=== PATIENT | female | born 1990 | race Two or more races ===

== ENCOUNTER 2019-06-22 20:12 | Emergency (ER) | payer SELFPAY ==
[~2019-06-22] VITALS: Ht 152.4 cm; Wt 63.6 kg
[2019-06-22 20:37] LABS: BILIRUBIN,URINE NEGATIVE (NEG); CLARITY,URINE CLEAR; COLOR,URINE YELLOW; NITRITE,URINE NEGATIVE (NEG); PH,URINE 5.5 (<5.0-8.0); PROTEIN,URINE NEGATIVE (NEG-TRACE); UROBILINOGEN,URINE 0.2 mg/dL (0.2 mg/dL)
[2019-06-22 20:42] VITALS: BP 143/75
[2019-06-22 20:44] LABS: SQUAMOUS EPITHELIAL CELL,UR MOD /LPF
[2019-06-22 20:45] LABS: BACTERIA,URINE 0 /HPF (0-FEW)
--- NOTE | 2019-06-22 21:11 | PHYS DOC ---
Past Medical History Past Medical History: No Pertinent History Past Surgical History: No Surgical History Smoking Status: Never Smoker Alcohol Use: None Adult General Chief Complaint Chief Complaint: ABDOMINAL PAIN IN HPI HPI Patient is a 29 year old female who presents with last menstrual period May 07, 2019. Patient states today she began having vaginal spotting and having intermittent menstrual pain. She states that she does not have any pain with urination. She currently rates her pain a 2 out of 10. She states the vaginal spotting has stopped. She does have concern for sexually transmitted disease. Patient has agreed to be treated today for sexually transmitted diseases. Review of Systems Review of Systems GI: Low mid abdominal pain, denies nausea, vomiting, bloody stools or diarrhea [] : Denies dysuria or hematuria. Vaginal spotting. [] All other systems were reviewed and found to be within normal limits, except as documented in this note. Current Medications Current Medications Current Medications Medications (Trade) Dose Ordered Sig/King Start Time Stop Time Status Last Admin Dose Admin Azithromycin (Zithromax) 500 mg 1X ONCE 06/22/19 21:30 06/22/19 21:31 DC 06/22/19 21:37 500 MG Ceftriaxone Sodium (Rocephin Im) 250 mg 1X ONCE 06/22/19 21:30 06/22/19 21:31 DC 06/22/19 21:37 250 MG Sodium Chloride 1,000 ml @ 1,000 mls/hr Q1H 06/22/19 21:30 06/22/19 22:29 06/22/19 21:37 1,000 MLS/HR Allergies Allergies Allergies Coded Allergies Type Severity Reaction Last Updated Verified No Known Drug Allergies 06/22/19 No Physical Exam Physical Exam Constitutional: Well developed, well nourished, no acute distress, non-toxic appearance. [] HENT: Normocephalic, atraumatic, bilateral external ears normal, oropharynx moist, no oral exudates, nose normal. [] Eyes: PERRLA, EOMI, conjunctiva normal, no discharge. [] Neck: Normal range of motion, no tenderness, supple, no stridor. [] Cardiovascular:Heart rate regular rhythm, no murmur [] Lungs & Thorax: Bilateral breath sounds clear to auscultation [] Abdomen: Bowel sounds normal, soft, low mid tenderness, no masses, no pulsatile masses. [] Skin: Warm, dry, no erythema, no rash. [] Back: No tenderness, no CVA tenderness. [] Extremities: No tenderness, no cyanosis, no clubbing, ROM intact, no edema. [] Neurologic: Alert and oriented X 3, normal motor function, normal sensory function, no focal deficits noted. [] Psychologic: Affect normal, judgement normal, mood normal. [] Current Patient Data Vital Signs Vital Signs Date Time Temp Pulse Resp B/P (MAP) Pulse Ox O2 Delivery O2 Flow Rate FiO2 06/22/19 20:42 99.1 83 20 143/75 (97) 99 Room Air 99.1 Lab Values Laboratory Tests Test 06/22/19 20:20 06/22/19 20:24 06/22/19 21:28 Urine Collection Type Unknown Urine Color Yellow Urine Clarity Clear Urine pH 5.5 (<5.0-8.0) Urine Specific [place] 1.010 (1.000-1.030) Urine Protein Negative mg/dL (NEG-TRACE) Urine Glucose (UA) Negative mg/dL (NEG) Urine Ketones (Stick) Negative mg/dL (NEG) Urine Blood Small (NEG) Urine Nitrite Negative (NEG) Urine Bilirubin Negative (NEG) Urine Urobilinogen Dipstick 0.2 mg/dL (0.2 mg/dL) Urine Leukocyte Esterase Trace (NEG) Urine RBC 3-5 /HPF (0-2) Urine WBC 1-4 /HPF (0-4) Urine Squamous Epithelial Cells Mod /LPF Urine Bacteria 0 /HPF (0-FEW) Urine Mucus Slight /LPF POC Urine HCG, Qualitative Hcg positive (Negative) White Blood Count 10.9 x10^3/uL (4.0-11.0) Red Blood Count 4.46 x10^6/uL (3.50-5.40) Hemoglobin 13.3 g/dL (12.0-15.5) Hematocrit 38.7 % (36.0-47.0) Mean Corpuscular Volume 87 fL (79-100) Mean Corpuscular Hemoglobin 30 pg (25-35) Mean Corpuscular Hemoglobin Concent 34 g/dL (31-37) Red Cell Distribution Width 13.3 % (11.5-14.5) Platelet Count 300 x10^3/uL (140-400) Neutrophils (%) (Auto) 65 % (31-73) Lymphocytes (%) (Auto) 28 % (24-48) Monocytes (%) (Auto) 6 % (0-9) Eosinophils (%) (Auto) 1 % (0-3) Basophils (%) (Auto) 1 % (0-3) Neutrophils # (Auto) 7.1 x10^3/uL (1.8-7.7) Lymphocytes # (Auto) 3.1 x10^3/uL (1.0-4.8) Monocytes # (Auto) 0.6 x10^3/uL (0.0-1.1) Eosinophils # (Auto) 0.1 x10^3/uL (0.0-0.7) Basophils # (Auto) 0.1 x10^3/uL (0.0-0.2) Prothrombin Time 12.6 SEC (11.7-14.0) Prothrombin Time INR 1.0 (0.8-1.1) Sodium Level 139 mmol/L (136-145) Potassium Level 3.2 mmol/L (3.5-5.1) L Chloride Level 103 mmol/L (98-107) Carbon Dioxide Level 24 mmol/L (21-32) Anion Gap 12 (6-14) Blood Urea Nitrogen 9 mg/dL (7-20) Creatinine 0.6 mg/dL (0.6-1.0) Estimated GFR (Cockcroft-Gault) 119.0 BUN/Creatinine Ratio 15 (6-20) Glucose Level 110 mg/dL (70-99) H Calcium Level 9.4 mg/dL (8.5-10.1) Total Bilirubin 0.2 mg/dL (0.2-1.0) Aspartate Amino Transferase (AST) 15 U/L (15-37) Alanine Aminotransferase (ALT) 23 U/L (14-59) Alkaline Phosphatase 71 U/L (46-116) Total Protein 6.8 g/dL (6.4-8.2) Albumin 3.7 g/dL (3.4-5.0) Albumin/Globulin Ratio 1.2 (1.0-1.7) Laboratory Tests 06/22/19 21:28 Laboratory Tests 06/22/19 21:28 Microbiology 06/22/19 Wet Prep - Final, Complete EKG EKG [] Radiology/Procedures Radiology/Procedures [] Impressions: [facility] [address] [place] [address] IMAGING REPORT Signed PATIENT: LILY BO: [id number] : 1990 LOCATION: ER AGE: 29 SEX: F EXAM STATUS: REG ER ORD. PHYSICIAN: OMARI PAGAN APRN REASON: VAG BLEEDING IN PROCEDURE: OB <14 WKS W/TV Exam: Ultrasound OB less than 14 weeks Indication: Vaginal bleeding and Technique: Real-time grayscale and color Doppler images of the pelvis were obtained by the department pipe fitter marine. Comparisons: None FINDINGS: Uterus measures 8.8 x 6.5 x 5.0 cm. Within the endometrium there is a gestational sac with yolk sac. No pole is identified. Right ovary measures 2.7 x 1.9 x 1.5 cm. Left ovary measures 3.8 x 4.1 x 2.6 cm. Small amount of fluid fluid noted within the pelvis. IMPRESSION: Gestational sac with internal yolk sac identified in the endometrium. No pole is identified. Differential considerations include an early IUP or failed IUP. Recommend correlation with serial beta hCG measurements and short-term follow-up ultrasound. Electronically signed by: Ama Oates MD (06/22/2019 9:42 PM) [id number] DICTATED and SIGNED BY: AMA OATES MD DATE: 06/22/192141 Course & Med Decision Making Course & Med Decision Making Pertinent Labs and Imaging studies reviewed. (See chart for details) Alert and oriented. Speaks in full clear sentences. Skin pink warm and dry. Low mid abdomen is slightly tender to palpation but she feels more of a pressure. Ambulatory with a steady gait. No extremity swelling. Patient rating her pain a 2 out of 10. She denies fever, back pain, abdominal pain, nausea, vomiting or diarrhea, numbness tingling, headache, dizziness, visual changes. Vital signs are within normal limits. Patient is Welsh-speaking customer accounts advisor phone is used. Patient is given Rocephin and Azithromycin. Patient is not currently having any vaginal bleedings. Pelvic Exam: Produce Sorter present Abdomen: Nontender External Genitalia: Normal Skin Speculum: Normal vaginal mucosa, White cervical discharge Bimanual: No adnexal masses or tenderness, No CMT [] Dragon Disclaimer Dragon Disclaimer This electronic medical record was generated, in whole or in part, using a voice recognition dictation system. Departure Departure Impression: Primary Impression: Abdominal pain affecting Additional Impressions: Vaginal spotting Bacterial vaginosis in Disposition: HOME, SELF-CARE Condition: STABLE Referrals: NO PCP (PCP) OSEI SHAH Jr, MD Patient Instructions: ABCs of , Abdominal Pain During , [id number], Sexually Transmitted Diseases (STD) In Additional Instructions: Follow up with OB as soon as possible. Drink plenty of fluids. Begin taking vitamins with food daily. If you begin bleeding and going through more than one pad a hour return to ED. Scripts Metronidazole (METRONIDAZOLE) 500 Mg Tablet 1 TAB PO BID for 7 Days, #14 TAB 0 Refills Prov: OMARI PAGAN APRN 06/22/19 Problem Qualifiers OMARI PAGAN APRN Jun 22, 2019 21:11
[2019-06-22] MEDS ORDERED: IV NORMAL SALINE 1000ML BAG 1,000 ML IV SCH (21:30)
[2019-06-22] MEDS ORDERED: AZITHROMYCIN 250 MG TABLET. PO ONE (21:30)
[2019-06-22] MEDS ORDERED: cefTRIAXone IM 250 MG VIAL IM ONE (21:30)
[2019-06-22 21:33] LABS: BASO # 0.1 x10^3/uL (0.0-0.2); BASO % 1 % (0-3); EOS # 0.1 x10^3/uL (0.0-0.7); EOS % 1 % (0-3); HEMATOCRIT 38.7 % (36.0-47.0); HEMOGLOBIN 13.3 g/dL (12.0-15.5); LYMPH # 3.1 x10^3/uL (1.0-4.8); LYMPH % 28 % (24-48); MEAN CORPUSCULAR HEMOGLOBIN 30 pg (25-35); MEAN CORPUSCULAR HGB CONC 34 g/dL (31-37); MEAN CORPUSCULAR VOLUME 87 fL (79-100); MONO # 0.6 x10^3/uL (0.0-1.1); MONO % 6 % (0-9); NEUT # 7.1 x10^3/uL (1.8-7.7); NEUT % 65 % (31-73); PLATELET COUNT 300 x10^3/uL (140-400); RED BLOOD COUNT 4.46 x10^6/uL (3.50-5.40); RED CELL DISTRIBUTION WIDTH 13.3 % (11.5-14.5); WHITE BLOOD COUNT 10.9 x10^3/uL (4.0-11.0)
[2019-06-22 21:40] LABS: CALCIUM 9.4 mg/dL (8.5-10.1); CREATININE 0.6 mg/dL (0.6-1.0); POTASSIUM 3.2 mmol/L (3.5-5.1)
[2019-06-22 21:43] LABS: PROTHROMBIN TIME PATIENT 12.6 SEC (11.7-14.0)
[2019-06-22 21:46] LABS: ALBUMIN 3.7 g/dL (3.4-5.0); ALBUMIN/GLOBULIN RATIO 1.2 (1.0-1.7); TOTAL BILIRUBIN 0.2 mg/dL (0.2-1.0); TOTAL PROTEIN 6.8 g/dL (6.4-8.2)
--- NOTE | 2019-06-22 21:46 | RAD ---
Exam: Ultrasound OB less than 14 weeks Indication: Vaginal bleeding and Technique: Real-time grayscale and color Doppler images of the pelvis were obtained by the department molded rubber goods cutter. Comparisons: None FINDINGS: Uterus measures 8.8 x 6.5 x 5.0 cm. Within the endometrium there is a gestational sac with yolk sac. No pole is identified. Right ovary measures 2.7 x 1.9 x 1.5 cm. Left ovary measures 3.8 x 4.1 x 2.6 cm. Small amount of fluid fluid noted within the pelvis. IMPRESSION: Gestational sac with internal yolk sac identified in the endometrium. No pole is identified. Differential considerations include an early IUP or failed IUP. Recommend correlation with serial beta hCG measurements and short-term follow-up ultrasound. Electronically signed by: Ama Lacey MD (06/22/2019 9:42 PM) [id number]
[2019-06-22] MEDS ORDERED: METR-34 PO (21:50)
[2019-06-25 17:09] LABS: GC PROBE Negative (Negative)
== END 2019-06-22 22:39 | disposition home or self-care (01) ==
LOC: ER 20:12
DX: O23.591 Infection of other part of genital tract in pregnancy, first trimester (principal); O26.851 Spotting complicating pregnancy, first trimester; R10.30 Lower abdominal pain, unspecified; Z3A.01 Less than 8 weeks gestation of pregnancy
CPT/HCPCS: 36415; 76801; 76817; 80053; 81001; 81025; 84702; 85025; 85610; 86850; 86870; 86900; 86901; 86902; 87086; 87491; 87591; 96372; 99285; J0696; J7030; Q0111

== ENCOUNTER 2021-02-05 08:56 | Emergency (ER) | payer MEDICAID ==
[~2021-02-05] VITALS: Ht 162.6 cm; Wt 85.0 kg
[~2021-02-05 08:56] MED LIST: DOCU-109 PO; FERR325T14 PO; IBUP-1060 PO; METR-34 PO
--- NOTE | 2021-02-05 09:38 | PHYS DOC ---
Past Medical History Past Medical History: No Pertinent History Past Surgical History: No Surgical History Smoking Status: Never Smoker Alcohol Use: None General Adult EDM: Chief Complaint: BACK PAIN - NO INJURY HPI: HPI: Patient is a 30 year old female who presents with 6 days of low back pain, low abdominal pain mostly suprapubic, with radiation of pain to her anterior bilateral thighs. She denies numbness or tingling or motor weakness. Denies stool or urine incontinence. She reports dysuria. She denies vaginal discharge or bleeding. LMP was 2 months ago. She reports she usually has irregular menses. She is not taking oral contraceptives. The pain in her back is mid and bilateral low back pain. No upper back or flank pain. No fevers or chills. No nausea, vomiting, diarrhea, constipation. No medications taken today for this pain. No fall, trauma or injury reported. Review of Systems: Review of Systems: Constitutional: Denies fever or chills. [] Respiratory: Denies cough or shortness of breath. [] Cardiovascular: Denies chest pain or edema. [] GI: Reports pelvic/suprapubic abdominal pain. Denies nausea, vomiting, diarrhea, constipation, denies melena or hematochezia. : Reports pelvic pain and dysuria. Denies vaginal discharge or bleeding. Denies urinary frequency or urgency. Musculoskeletal: Reports diffuse back pain Integument: Denies rash. [] Neurologic: Denies headache, focal weakness or sensory changes. Denies numbness or tingling. Endocrine: Denies polyuria or polydipsia. [] Psychiatric: Denies depression or anxiety. [] Heart Score: C/O Chest Pain: No Risk Factors: Risk Factors: DM, Current or recent (<one month) smoker, HTN, HLP, family history of CAD, obesity. Risk Scores: Score 0 - 3: 2.5% MACE over next 6 weeks - Discharge Home Score 4 - 6: 20.3% MACE over next 6 weeks - Admit for Clinical Observation Score 7 - 10: 72.7% MACE over next 6 weeks - Early Invasive Strategies Allergies: Allergies: Allergies Coded Allergies Type Severity Reaction Last Updated Verified No Known Drug Allergies 02/05/21 No Physical Exam: PE: Constitutional: Well developed, well nourished, no acute distress, non-toxic appearance. [] HENT: Normocephalic, atraumatic, mucous membranes are moist. Eyes: Sclera clear, anicteric, conjunctive are noninjected Neck: Trachea midline Cardiovascular:Heart rate regular rhythm, no murmur, +2 radial and posterior tibial pulses bilaterally. Lungs & Thorax: Bilateral breath sounds clear to auscultation [] Abdomen: Abdomen is obese, soft, nondistended, tenderness to palpation of savage prapubic area, no CVA tenderness. No palpable masses organomegaly. No focal right or left lower abdominal tenderness. Skin: Warm, dry, no erythema, no rash. [] Back: No deformity, no midline tenderness or step-offs. Diffuse bilateral paraspinal lumbar tenderness to palpation. Full range of motion. Extremities: No tenderness, no cyanosis, no clubbing, ROM intact, no edema. No calf tenderness. Neurologic: Alert and oriented X 3, normal motor function, normal sensory function, no focal deficits noted. 5/5 motor strength all 4 extremities. Sensation grossly intact. Ambulatory with a steady and nonantalgic gait. Psychologic: Affect normal, judgement normal, mood normal. [] Current Patient Data: Vital Signs: Vital Signs Date Time Temp Pulse Resp B/P (MAP) Pulse Ox O2 Delivery O2 Flow Rate FiO2 02/05/21 09:24 97.5 73 15 115/59 (77) 99 Room Air 97.5 EKG: EKG: [] Radiology/Procedures: Radiology/Procedures: IMAGING REPORT Signed PATIENT: JJ BOOUNT: [id number] : 1990 LOCATION: ER AGE: 30 SEX: F EXAM STATUS: PRE ER ORD. PHYSICIAN: GAUDENCIO POZO DO REASON: + test, pelvic pain PROCEDURE: OB <14 WKS W/TV US OB <14 WKS +TV History: Reason: + test, pelvic pain / Spl. Instructions: / History: Comparison: None. Technique: Grayscale and color Doppler imaging of the pelvis was performed using transabdominal technique. Findings: The uterus measures 8.3 x 5.4 x 4.2 cm. Nabothian cysts noted. Single intrauterine gestational sac measures 0.92 cm. Estimated gestational age by ultrasound 5 weeks 5 days. No pole or yolk sac is identified. Estimated date of completion by ultrasound October 03, 2021. Right ovary measures 3.2 x 2.4 x 2.3 cm. Heterogeneous right ovarian follicle measures 1.7 cm, may represent corpus luteal cyst. Left ovary measures 3.0 x 3.0 x 1.3 cm. Normal Doppler flow to the ovaries bilaterally. Prominent adnexal vessels. Small pelvic free fluid, likely physiologic. IMPRESSION: 1. Single intrauterine gestational sac with gestational age 5 weeks 5 days. No pole is identified, may relate to early . Recommend short-term ultrasound follow-up and serial beta-hCG testing. 2. Mildly prominent adnexal vessels, can be seen with pelvic congestion syndrome. Electronically signed by: Kwadwo Verduzco DO (02/05/2021 12:04 PM) [id number] DICTATED and SIGNED BY: KWADWO VERDUZCO DO DATE: 02/05/21 [id number] Course & Med Decision Making: Course & Med Decision Making Pertinent Labs and Imaging studies reviewed. (See chart for details) P.o. Tylenol is given for pain. The patient's test is positive, ultrasound reveals 5-week intrauterine . She denies bleeding. Laboratory evaluation is otherwise unremarkable. Her exam is unremarkable/nonsurgical. She is pleased with this information, she is excited to know the dates of her . She reports that she has an remote broadcast engineer with whom she can follow-up, I encouraged her to contact them as soon as possible to establish care. I instructed her that she should avoid NSAIDs. Tylenol is appropriately dosed as appropriate for pain relief. Strict return precautions are given. She is comfortable to plan for discharge. Singh Disclaimer: Singh Disclaimer: This electronic medical record was generated, in whole or in part, using a voice recognition dictation system. Departure Departure Impression: Primary Impression: Abdominal pain during in first trimester Additional Impressions: Low back pain Intrauterine Disposition: 01 HOME / SELF CARE / HOMELESS Condition: STABLE Referrals: NO PCP (PCP) Patient Instructions: Abdominal Pain During Additional Instructions: You are , your ultrasound shows that you are just over 5 weeks . The rest of your work-up is normal. Please contact an OB to establish care. Return to the ER for vaginal bleeding, for fever of 100.4 or higher, uncontrolled vomiting, dehydration or for any other concerns. You may take plain [id number] Tylenol for your back pain. At this time, please avoid medications such as aspirin, Aleve or ibuprofen. You may alternate ice and heat on your back. GAUDENCIO POZO DO Feb 05, 2021 09:38
[2021-02-05 09:45] LABS: BILIRUBIN,URINE NEGATIVE (NEG); CLARITY,URINE CLEAR; COLOR,URINE YELLOW; NITRITE,URINE NEGATIVE (NEG); PROTEIN,URINE NEGATIVE (NEG-TRACE); UROBILINOGEN,URINE 0.2 mg/dL (0.2 mg/dL)
[2021-02-05 09:51] LABS: U PREG PATIENT POSITIVE (NEG)
[2021-02-05 10:19] LABS: BACTERIA,URINE FEW /HPF (0-FEW); RBC,URINE 0 /HPF (0-2)
[2021-02-05] MEDS ORDERED: ACETAMINOPHEN 500 MG TABLET PO ONE (10:30)
[2021-02-05 10:47] LABS: CALCIUM 8.7 mg/dL (8.5-10.1); CREATININE 0.5 mg/dL (0.6-1.0); GFR 145.9; POTASSIUM 3.8 mmol/L (3.5-5.1)
[2021-02-05 11:06] LABS: BASO % 1 % (0-3); EOS # 0.1 x10^3/uL (0.0-0.7); EOS % 2 % (0-3); HEMATOCRIT 39.6 % (36.0-47.0); HEMOGLOBIN 13.7 g/dL (12.0-15.5); LYMPH # 2.5 x10^3/uL (1.0-4.8); LYMPH % 34 % (24-48); MEAN CORPUSCULAR HEMOGLOBIN 29 pg (25-35); MEAN CORPUSCULAR HGB CONC 35 g/dL (31-37); MEAN CORPUSCULAR VOLUME 85 fL (79-100); MONO # 0.6 x10^3/uL (0.0-1.1); MONO % 8 % (0-9); NEUT % 56 % (31-73); PLATELET COUNT 314 x10^3/uL (140-400); RED BLOOD COUNT 4.66 x10^6/uL (3.50-5.40); WHITE BLOOD COUNT 7.3 x10^3/uL (4.0-11.0)
[2021-02-05 11:50] VITALS: BP 130/70
--- NOTE | 2021-02-05 12:06 | RAD ---
US OB <14 WKS +TV History: Reason: + test, pelvic pain / Spl. Instructions: / History: Comparison: None. Technique: Grayscale and color Doppler imaging of the pelvis was performed using transabdominal techn ique. Findings: The uterus measures 8.3 x 5.4 x 4.2 cm. Nabothian cysts noted. Single intrauterine gestational sac measures 0.92 cm. Estimated gestational age by ultrasound 5 weeks 5 days. No pole or yolk sac is identified. Estimated date of completion by ultrasound October 03, 2021. Right ovary measures 3.2 x 2.4 x 2.3 cm. Heterogeneous right ovarian follicle measures 1.7 cm, may re present corpus luteal cyst. Left ovary measures 3.0 x 3.0 x 1.3 cm. Normal Doppler flow to the ovaries bilaterally. Prominent adnexal vessels. Small pelvic free fluid, l ikely physiologic. IMPRESSION: 1. Single intrauterine gestational sac with gestational age 5 weeks 5 days. No pole is identif ied, may relate to early . Recommend short-term ultrasound follow-up and serial beta-hCG dima ting. 2. Mildly prominent adnexal vessels, can be seen with pelvic congestion syndrome. Electronically signed by: Kwadwo Verduzco DO (02/05/2021 12:04 PM) [id number]
== END 2021-02-05 13:30 | disposition home or self-care (01) ==
LOC: ER 08:56
DX: O46.91 Antepartum hemorrhage, unspecified, first trimester (principal); R10.30 Lower abdominal pain, unspecified; M54.59 Other low back pain; Z3A.01 Less than 8 weeks gestation of pregnancy
CPT/HCPCS: 36415; 76801; 76817; 80048; 81001; 81025; 84702; 85025; 87086; 99284-25